=== PATIENT | female | born 1980 | race African-American/Black ===

== ENCOUNTER 2016-11-24 20:38 | Emergency (ER) ==
--- NOTE | 2016-11-24 21:51 | PROVIDER DOCUMENTATION ---
HPI-General Adult - General Chief Complaint: Allergic Reaction Stated Complaint: BREAKING OUT, POSS ALLERGIC REACTION Time Seen by Provider: 11/24/16 21:44 Source: patient Allergies/Adverse Reactions: Patient Allergies Allergy/AdvReac Type Severity Reaction Status Date / Time No Known Allergies Allergy Verified 11/24/16 21:04 Home Medications: Home Medication List Medication Instructions Recorded Confirmed Last Taken Type Cetirizine HCl [Zyrtec] 10 mg PO DAILY #20 capsule 11/24/16 Unknown Rx Famotidine [Pepcid] 20 mg PO BID #30 tablet 11/24/16 Unknown Rx Methylprednisolone [Medrol Dosepak] 4 mg PO DIRECTED #1 package 11/24/16 Unknown Rx - History of Present Illness -Gen Adult Nature of Presenting Problems: 36 y/o BF presents to ED with c/o rash, dizziness, throat swelling x 1 hour, 45 minutes. Pt states that she noticed bumps on pt about 30 minutes after eating [employer] and noticed throat swelling. States feels hot and chest is tightening. No allergic reactions to food in the past. States no changes since this started. States rash is not itchy in nature. Pt in NAD. Pt ate shrimp tonight, but has never had a reaction to shrimp or iodine in the past. Review of Systems - Adult - REVIEW OF SYSTEMS - ADULT Constitutional: reports: no symptoms reported. denies: chills, fever Eyes: reports: no symptoms reported. denies: blurred vision, double vision Ears, Nose, Mouth & Throat: reports: see HPI, throat swelling. denies: ear pain , nose pain Cardiovascular: reports: see HPI, chest pain. denies: palpitations Respiratory: reports: no symptoms reported. denies: cough, dyspnea on exertion , shortness of breath Gastrointestinal: reports: no symptoms reported. denies: abdominal pain, diarrhea, nausea, vomiting Genitourinary: reports: no symptoms reported. denies: dysuria, frequency Musculoskeletal: reports: no symptoms reported. denies: joint pain, joint swelling Integumentary: reports: see HPI, rash. denies: itching, nail changes Neurological: reports: no symptoms reported. denies: numbness, paresthesia Psychiatric: reports: no symptoms reported Endocrine: reports: no symptoms reported. denies: cold intolerance, heat intolerance Hematologic/Lymphatic: reports: no symptoms reported. denies: easy bruising, prolonged bleeding Allergic/Immunologic: reports: no symptoms reported. denies: allergic reactions , food allergy All Other Systems: Reviewed and Negative Past History - Adult - PAST MEDICAL HISTORY-ADULT Review of Records: reports: Nursing Assessment Review, Medications Reviewed LMP: 11/22/16 - PRIOR SURGERIES/PROCEDURES Surgical/Procedure History: reports: BTL, - SOCIAL HISTORY Smoking: denies Alcohol Use Frequency: never Physical Exam-General - PHYSICAL EXAM-ADULT Initial Vital Signs Reviewed: Yes - CONSTITUTIONAL General Appearance: appears well, alert, no apparent distress - EYES Eyes: pink conjunctivae - HEAD, EARS, NOSE, MOUTH & THROAT HENMT: normocephalic/atraumatic, moist mucous membranes. negative: pharyngeal erythema - NECK Neck: supple, normal inspection. negative: lymphadenopathy - RESPIRATORY Respiratory: lungs clear, normal breath sounds. negative: crackles, rales, rhonchi, stridor, wheezing - CARDIOVASCULAR Cardiovascular: regular rate, rhythm. negative: bradycardia, tachycardia - MUSCULOSKELETAL Back Exam: normal inspection Extremity: normal gait - SKIN Integumentary: normal color, normal turgor, warm/dry - NEUROLOGIC Neurologic: negative: aphasia - PSYCHIATRIC Psych/Mental Status: normal mood/affect, normal thought content, normal thought process, oriented x 3 Progress - PLAN OF CARE/RESULTS Progress/Plan/Lab Results: Orders Category Date Time Status NECK AP AND/OR LAT SOFT TISSUE [RAD] Stat Exams 11/24/16 21:52 Taken Cetirizine [Zyrtec] Med 11/24/16 21:53 Discontinued 10 mg PO NOW ONE Dexamethasone [Decadron] Med 11/24/16 21:53 Discontinued 10 mg IM NOW ONE Diphenhydramine [Benadryl] Med 11/24/16 21:53 Discontinued 25 mg IM NOW ONE Famotidine [Pepcid] Med 11/24/16 21:53 Discontinued 40 mg PO NOW ONE Vital Signs Temp Pulse Resp BP Pulse Ox 11/24/16 22:19 78 16 161/89 99 11/24/16 20:58 98.5 F 88 18 193/85 100 No Known Allergies Allergy (Verified 11/24/16 21:04) Cetirizine HCl [Zyrtec] 10 mg PO DAILY #20 capsule 11/24/16 Famotidine [Pepcid] 20 mg PO BID #30 tablet 11/24/16 Methylprednisolone [Medrol Dosepak] 4 mg PO DIRECTED #1 package 11/24/16 Discussed results and medication use with pt, including refraining from shrimp until cleared by PCP/specialist. - XRAY 1 XRAY Study: other (neck) XRAY Interpretation: No acute findings Departure - Departure Time of Disposition Order: 22:21 DIAGNOSIS: Allergic reaction Qualifiers: Encounter type: initial encounter Qualified Code(s): T78.40XA - Allergy, unspecified, initial encounter Disposition: HOME 01 Certified Medical Emergency: Emergent Condition: Stable Additional Instructions: Take medications as directed. Follow up with specialist as needed for further management. No shrimp until seen by specialist and cleared. ED Follow Up Instructions: You have been treated by a care provider in the Emergency Department. These instructions are being provided to you so you can have an understanding of how to care for yourself upon discharge. Upon discharge from the Emergency Department, you are responsible for making arrangements for follow-up care by a physician of your choice. Take all prescribed medications as directed. Return to the Emergency Department immediately for any new or worsening symptoms. You may call the Physician Referral phone number at [phone] to obtain a list of Physicians who are taking new patients. Prescriptions: Methylprednisolone [Medrol Dosepak] 4 mg PO DIRECTED #1 package Famotidine [Pepcid] 20 mg PO BID #30 tablet Cetirizine HCl [Zyrtec] 10 mg PO DAILY #20 capsule Referrals: None,PCP [Primary Care Provider] - Instructions: Food Allergy, [id number] Attestation - Physician/ KEVIN Attestation Patient care was provided by Advanced Practice Provider:: Yes Advanced Practice Provider:: Bita Medley Advanced Practice Provider documentation review:: The Mid-level provider documentation, treatment plan and medical decision making was reviewed by the physician who agrees with all treatment and medical decision making by the MLP.
[2016-11-24] MEDS ORDERED: DECADRON IM ONE (21:53)
[2016-11-24] MEDS ORDERED: ZYRTEC PO ONE (21:53)
[2016-11-24] MEDS ORDERED: PEPCID PO ONE (21:53)
[2016-11-24] MEDS ORDERED: BENADRYL IM ONE (21:53)
[2016-11-24 23:06] VITALS: BP 161/89
--- NOTE | 2016-11-25 08:31 | Diag Imaging Result Document ---
PROCEDURE NAME: NECK AP AND/OR LAT SOFT TISSUE - 11/24/2016 SOFT TISSUE NECK AP AND LATERAL, TWO VIEWS: FINDINGS: There is good alignment to the cervical spine. No precervical soft tissue swelling. No subluxation. The airway is well distended. No foreign body. IMPRESSION: Negative exam. If symptom persist then followup imaging may be beneficial.
== END 2016-11-24 23:06 | disposition home or self-care (01) ==
LOC: ED 20:38
DX: T78.1XXA Other adverse food reactions, not elsewhere classified, initial encounter (principal); R21 Rash and other nonspecific skin eruption; R42 Dizziness and giddiness; R22.1 Localized swelling, mass and lump, neck; R07.9 Chest pain, unspecified
CPT/HCPCS: 70360; J1200